=== PATIENT | female | born 1960 | race Hispanic/Latino ===

== ENCOUNTER 2019-05-13 01:53 | Emergency (ER) | payer BC ==
[~2019-05-13] VITALS: Ht 152.4 cm; Wt 78.5 kg
--- OUTSIDE RECORDS SUMMARY | 2019-05-13 01:55 | XMS REPORT | Clinical Summary ---
Author Author [facility] Organization [facility] Address Unknown Phone Unavailable Care Team Providers Care Casting Supervisor Name Role Phone Ariadna Bradshaw MD PCP Allergies No Known Allergies Medications End Date Status Medication Sig Dispensed Refills Start Date Active omeprazole (PRILOSEC) 20 Take 2 60 capsule 5 mg delayed release capsules by 9 capsuleIndications: mouth daily. Gastroesophageal reflux disease without esophagitis Active amLODIPine (NORVASC) 10 Take 1 tablet 30 tablet 5 mg tabletIndications: by mouth 9 Essential hypertension, daily. benign Active albuterol 90 Inhale 2 6.7 g 0 mcg/actuation Puffs by 9 inhalerIndications: mouth 4 times Moderate persistent daily as extrinsic asthma with needed for acute exacerbation Wheezing. Active albuterol (PROVENTIL) 2.5 Inhale 3 mL 75 mL 5 mg /3 mL (0.083 %) by mouth 9 nebulizer every 6 hours solutionIndications: as needed for Moderate persistent Wheezing. extrinsic asthma with acute exacerbation Active fluticasone Inhale 1 Puff 60 Each 11 propion-salmeterol by mouth 2 9 (ADVAIR DISKUS) 250-50 times daily. mcg/dose diskus inhalerIndications: Moderate persistent extrinsic asthma with acute exacerbation Active predniSONE (DELTASONE) 20 Take 2 tabs 11 tablet 0 mg tabletIndications: for 3 days 9 Moderate persistent then take 1 extrinsic asthma with tab for 3 acute exacerbation days then 1/2 for 3 days. Active Nebulizer & Compressor by 1 Device 0 For Neb DeviIndications: Misc.(Non-Leonides 9 Moderate persistent g; Combo extrinsic asthma with Route) route. acute exacerbation Active Nebulizer Accessories by 1 Kit 0 KitIndications: Moderate Misc.(Non-Leonides 9 persistent extrinsic g; Combo asthma with acute Route) route. exacerbation Active oxybutynin (DITROPAN) 5 Take 1 tablet 60 tablet 11 mg tabletIndications: by mouth 2 9 Urge incontinence times daily. Active triamcinolone (TRIDERM) Apply to 80 g 5 0.1 % topical affected area 9 creamIndications: Eczema, 2 times daily unspecified type as needed (eczema). Active mometasone (NASONEX) 50 Inhale 2 17 g 5 mcg/actuation nasal spray Sprays in 9 each nostril daily. Auto substitution for Flonase per p&t 03/15/2019 Discontinued CITALOPRAM 20 MG take 1 tablet 30 6 TABIndications: (20 mg) by 8 Depression oral route once daily 04/01/2019 Discontinued fluticasone propionate Use 2 Sprays 16 g 5 (FLONASE) 50 in each 9 mcg/actuation nasal nostril sprayIndications: daily. Seasonal allergic rhinitis, unspecified trigger 04/01/2019 Discontinued mometasone (NASONEX) 50 Use2 Sprays 17 g 5 mcg/actuation nasal spray by each 9 nostril route daily. (Autosubstitu tion per P&T) 04/11/2019 terconazole (TERAZOL 3) Insert 1 20 g 0 0.8 % vaginal Applicator 9 creamIndications: Yeast vaginally at infection bedtime nightly for 3 days For yeast infection. Status Hospital, Clinic, or Ordered Dose Route Frequency Start End Date Other Facility Date Administered Medication Ended methylPREDNISolone sodium 40 mg IM ONCE 03/15/20 succinate (SOLU-MEDROL) 19 9 injection 40 mgIndications: Moderate persistent extrinsic asthma with acute exacerbation Active Problems Problem Noted Date Insomnia 11/01/2007 Depression 09/21/2007 Pruritus 09/21/2007 Prurigo nodularis 06/07/2007 Arthralgias 06/07/2007 Dermatitis 06/07/2007 Headache(784.0) 06/07/2007 Encounters Care Team Description Date Type Specialty Hilliard, Es A, DDS Chronic periodontitis (Primary Dx); Dental caries 05/09/2019 Office Visit Dentistry 05/09/2019 Travel Jennifer Gonzalez OT Symptomatic varicose veins, bilateral (Primary Dx) 04/29/2019 Therapy Occupational Therapy 04/29/2019 Travel Ariadna Bradshaw MD Well woman exam (Primary Dx) 04/09/2019 Orders Only Family Practice Ariadna Bradshaw MD 04/01/2019 Hospital Lab Encounter Ariadna Bradshaw MD Well woman exam 03/29/2019 Ancillary Radiology Procedure Ariadna Bradshaw MD Well woman exam (Primary Dx); Eczema, unspecified type; Seasonal allergic rhinitis, unspecified trigger; Yeast infection 03/29/2019 Office Visit Family Practice 03/29/2019 Travel Ariadna Bradshaw MD Breast cancer screening 03/27/2019 Ancillary Radiology Procedure Ariadna Bradshaw MD Symptomatic varicose veins, bilateral (Primary Dx); Preventive measure; Urge incontinence; Breast cancer screening 03/22/2019 Office Visit [facility] Silvia Lo RN 03/20/2019 Clinical Case Social Work Mgt Jonathan Mendoza MD Bailey, Franchelle Y, MD Moderate persistent extrinsic asthma with acute exacerbation (Primary Dx); Gastroesophageal reflux disease without esophagitis; Essential hypertension, benign 03/15/2019 Office Visit Family Practice 03/15/2019 Travel after 05/12/2018 Immunizations Name Administration Dates Next Due Albuterol 0.083% (3ml) 03/15/2019 Family History Medical History Relation Name Comments Hypertension Brother Arthritis Father Diabetes Father Hypertension Father Cancer Maternal Aunt Diabetes Maternal Aunt Hypertension Maternal Aunt Arthritis Maternal Grandmother Diabetes Maternal Grandmother Stroke Maternal Grandmother Diabetes Maternal Uncle Hypertension Maternal Uncle Arthritis Mother Diabetes Mother Hypertension Mother Asthma Sister Psychiatry Sister Seizures Sister Psychiatry Sister Relation Name Status Comments Brother Father Maternal Aunt Maternal Grandmother Maternal Uncle Mother Sister Sister Social History Date Tobacco Use Types Packs/Day Years Used Former Smoker 15 Smokeless Tobacco: Never Used Comments: 1-2 cig Drinks/Week oz/Week Comments Alcohol Use one 6 pack in one week Not Currently Food Insecurity Answer Date Recorded Within the past 12 months, you worried that your Never true 03/22/2019 food would run out before you got money to buy more. Within the past 12 months, the food you bought Never true 03/22/2019 just didn't last and you didn't have money to get more. Sex Assigned at Date Recorded Not on file Industry Job Start Date Occupation Not on file Not on file Not on file Travel End Travel History Travel Start No recent travel history available. Last Filed Vital Signs Reading Time Taken Comments Vital Sign 142/86 03/29/2019 9:08 AM CDT Blood Pressure 68 03/29/2019 9:08 AM CDT Pulse 36.8 C (98.2 F) 03/29/2019 9:08 AM CDT Temperature 17 03/29/2019 9:08 AM CDT Respiratory Rate - - Oxygen Saturation - - Inhaled Oxygen Concentration 83 kg (183 lb) 03/29/2019 9:08 AM CDT Weight 154.9 cm (5' 1") 03/29/2019 9:08 AM CDT Height 34.58 03/29/2019 9:08 AM CDT Body Mass Index Plan of Treatment Care Team Description Date Type Specialty Nando Qiu, OD [address] [place], [place] [id number] eye exam 05/17/2019 Office Visit [place] [address] [place] [address]. [place] [address] F/U RESULTS 05/21/2019 Office Visit Family Practice Health Maintenance Due Date Last Done Comments Cervical Cancer Scrn (3 1979 Yrs) IMM Influenza Seasonal 07/09/2019 Oct to December (>/=19 yrs) Breast Cancer Scrn 03/29/2020 03/29/2019 (Yearly) Colorectal Cancer Scrn 03/29/2020 03/29/2019 Annual (FIT/FOBT) Age 50 to 75 Goals Goal Patient Associated Recent Progress Patient-Stat Author Goal Type Problems ed? Weight (lb) < 200 lb (90.7 kg) Weight 83 kg (183 lb) No Kiara, (03/29/2019 9:08 AM Svitlana Quintero CDT) Procedures Comments Procedure Name Priority Date/Time Associated Diagnosis HPV HIGH-RISK Routine 04/01/2019 8:35 AM CDT FECAL OCCULT BLOOD Routine 03/29/2019 Preventive measure 12:26 PM CDT MAMMOGRAM BILAT SCREEN Routine 03/29/2019 Well woman exam DIGITAL 10:08 AM CDT CHLAM/GC DNA AMPLI Routine 03/29/2019 Well woman exam 9:33 AM CDT PAP TEST CYTOLOGY Routine 03/29/2019 Well woman exam 9:31 AM CDT DIFFERENTIAL, MANUAL-WAM Routine 03/27/2019 Preventive measure 8:46 AM CDT CBC Routine 03/27/2019 Preventive measure 8:46 AM CDT THYROID STIMULATING Routine 03/27/2019 Preventive measure HORMONE (TSH) 8:46 AM CDT SYPHILIS SCREEN FOR Routine 03/27/2019 Preventive measure INFECTION 8:46 AM CDT HIV-1/HIV-2 ROUTINE Routine 03/27/2019 Preventive measure SCREENING 8:46 AM CDT HEPATITIS PANEL Routine 03/27/2019 Preventive measure 8:46 AM CDT HEMOGLOBIN A1C Routine 03/27/2019 Preventive measure 8:46 AM CDT LIPID PROFILE Routine 03/27/2019 Preventive measure 8:46 AM CDT CBC/DIFF Routine 03/27/2019 Preventive measure 8:46 AM CDT COMPREHENSIVE METABOLIC Routine 03/27/2019 Preventive measure PANEL 8:46 AM CDT after 05/12/2018 Results * HPV HIGH-RISK (04/01/2019 8:35 AM CDT) HPV High Risk Negative Negative [facility] Specimen Liquid Based Pap - Cervix, NOS Narrative Performed At The [facility] HPV Assay is an in vitro nucleic acid amplification test for the [facility] qualitative detection of E6/E7 viral messenger RNA (mRNA) from 14 high-risk types of human papillomavirus (HPV) in cervical specimens. The high-risk HPV types detected by the assay include: 16,18,31,33,35,39,45,51,52,56,58,59,66, and 68. Performing Organization Address City/[facility]/Zipcode Phone Number [facility] [address] [place] [address] * FECAL OCCULT BLOOD (03/29/2019 12:26 PM CDT) Occult Blood Negative Negative [facility] Specimen Stool - Feces Performing Organization Address [facility] Phone Number [facility] * MAMMOGRAM BILAT SCREEN DIGITAL (03/29/2019 10:08 AM CDT) Specimen Impressions Performed At IMPRESSION: BENIGN SMS There is no mammographic evidence of malignancy. A 1 year screening mammogram is recommended. This document has been electronically signed. Stephanie Alves M.D. to/penrad:03/29/2019 11:29:24 Caisson Worker: Priscilla Villalobos, [facility] letter sent: Benign Exam Mammogram BI-RADS: 2 Benign G0202 z12.31 Narrative Performed At #[id number] - MAMMOGRAM BILAT SCREEN DIGITAL SMS BILATERAL DIGITAL SCREENING MAMMOGRAM WITH CAD: 03/27/2019 CLINICAL: Screening for malignancy. No prior exams were available for comparison. There are scattered fibroglandular elements in both breasts that could obscure a lesion on mammography. Current study was also evaluated with a Computer Aided Detection (CAD) system. There are benign calcifications in both breasts.There also is a benign intramammary node in the left breast. No significant masses, calcifications, or other findings are seen in either breast. Procedure Note Interface, Rad/Mammog In - 03/29/2019 1:34 PM CDT #[id number] - MAMMOGRAM BILAT SCREEN DIGITAL BILATERAL DIGITAL SCREENING MAMMOGRAM WITH CAD: 03/27/2019 CLINICAL: Screening for malignancy. No prior exams were available for comparison. There are scattered fibroglandular elements in both breasts that could obscure a lesion on mammography. Current study was also evaluated with a Computer Aided Detection (CAD) system. There are benign calcifications in both breasts. There also is a benign intramammary node in the left breast. No significant masses, calcifications, or other findings are seen in either breast. IMPRESSION IMPRESSION: BENIGN There is no mammographic evidence of malignancy. A 1 year screening mammogram is recommended. This document has been electronically signed. Stephanie Alves M.D. to/penrad:03/29/2019 11:29:24 Caisson Worker: Priscilla Villalobos [facility] letter sent: Benign Exam Mammogram BI-RADS: 2 Benign G0202 z12.31 Performing Organization Address [facility] Phone Number SMS * CHLAM/GC DNA AMPLI (03/29/2019 9:33 AM CDT) Chlamydia Negative Negative [facility] trachomatis [facility] N. gonorrhoeae Negative Negative [facility] Specimen Genital - Cervix, endocervix Narrative Performed At This test utilizes Infinio Combo 2 Assay for target amplification of rRNA [facility] for the qualitative detection of Chlamydia trachomatis and Neisseria gonorrhoeae. Performing Organization Address [facility] Phone Number [facility] [address] [place] [address] * PAP TEST CYTOLOGY (03/29/2019 9:31 AM CDT) Case Report Gynecologic Cytology [facility] Report [facility] Case: [id number] Authorizing Provider:Ariadna Bradshaw MD Collected: 03/29/2019 09:31 AM Ordering Location: [facility] MLKReceived: 03/29/20 19 02:03 PM First Screen:Chadwick villegas, Nazia Rescreen: Caitlin Calle Specimen:ThinPrep Bonderite Operator Manual, Cervicovaginal Specimen Satisfactory for evaluation, [facility] Adequacy No endocervical/transformation LABORATORY zone present Interpretation Negative for intraepithelial [facility] Electronically lesion or malignancy LAB[facility] signed by Caitlin Calle CT (ASCP) on 04/04/2019 at 2:58 PM Non Neoplastic Infection [facility] Findings Fungal organisms LABORATORY morphologically consistent with Jamilah species Pertinent postmenopausal [facility] Clinical [facility] Information Educational The pap smear/test is a [facility] Note screening test for cervical LABORATORY cancer. As with screening procedures, both false negative and false positive results may occur. Hence, the results should be interpreted in the context of patient's history and current clinical information. Specimen Liquid Based Pap - Cervicovaginal Performing Organization Address City/[facility] Cent[facility]ode Phone Number [facility] [address] [place] [address] * CBC (03/27/2019 8:46 AM CDT) [facility] WBC 7.2 4.5 - 11.0 K/uL [facility] RBC 4.32 4.20 - 5.40 M/uL [facility] Hemoglobin 12.5 12.0 - 16.0 g/dL [facility] Hematocrit 40.8 37.0 - 47.0 % [facility] MCV 94.4 (H) 82.0 - 92.0 fL [facility] MCH 28.9 27.0 - 32.0 pg [facility] MCHC 30.6 (L) 32.0 - 36.0 g/dL [facility] RDW 45.8 36.4 - 46.3 fL [facility] Platelet 789 (H) 150 - 400 K/uL [facility] Mean Platelet 10.1 9.4 - 12.4 fL [facility] Volume [facility] Percent NRBC 0.0 % [facility] Absolute 0.00 K/uL [facility] NRBC-CV [facility] Specimen Blood Performing Organization Address [facility]ercook Phone Number [facility] [address] [place] [address] * SYPHILIS SCREEN FOR INFECTION (03/27/2019 8:46 AM CDT) [facility] TPA NEGATIVE Negative, Equivocal [facility] Final Report NEGATIVE Negative [facility] Specimen Blood Performing Organization Address [facility] Phone Number [facility] [address] [place] [address] * DIFFERENTIAL, MANUAL-WAM (03/27/2019 8:46 AM CDT) [facility] WBC 4.5 - 11.0 K/uL [facility] Neutrophil 69.0 34.0 - 70.0 % [facility] Lymphocyte 17.0 (L) 20.0 - 50.0 % [facility] Monocyte 5.0 5.0 - 12.0 % [facility] Eosinophil 9.0 (H) 0.7 - 5.0 % [facility] Basophil 0.0 (L) 0.1 - 1.2 % [facility] Neutrophil, Abs 4.94 1.56 - 6.13 K/uL [facility] Lymphocyte, Abs 1.22 1.18 - 3.74 K/uL [facility] Monocyte, Abs 0.36 0.24 - 0.36 K/uL [facility] Eosinophil, Abs 0.64 (H) 0.04 - 0.36 K/uL [facility] Basophil, Abs 0.00 (L) 0.01 - 0.08 K/uL [facility] Large Platelets 2+ (A) None seen [facility] Platelet Clumps Present (A) None seen [facility] Total Cells [facility] Counted [facility] Specimen Blood Performing Organization Address [facility] Phone Number [facility] [address] [place] [address] * HIV-1/HIV-2 ROUTINE SCREENING (03/27/2019 8:46 AM CDT) [facility] HIV-1/HIV-2 NEGATIVE Negative [facility] Specimen Blood Performing Organization Address [facility] Phone Number [facility] [address] [place] [phone] * HEMOGLOBIN A1C (03/27/2019 8:46 AM CDT) [facility] Hemoglobin A1c 6.1 4.3 - 6.1 % [facility] Estimated 128 (H) 70 - 110 mg/dL [facility] Average Glucose LABOR[facility] Specimen Blood Performing Organization Address [facility] Phone Number [facility] [address] [place] [phone] * COMPREHENSIVE METABOLIC PANEL (03/27/2019 8:46 AM CDT) [facility] Sodium 139 136 - 145 mmol/L [facility] Potassium 4.9 3.5 - 5.1 mmol/L [facility] Chloride 103 98 - 107 mmol/L [facility] CO2 27 21 - 31 mmol/L [facility] Glucose 117 (H) 70 - 110 mg/dL [facility] Calcium, Total 9.5 8.6 - 10.3 mg/dL [facility] Urea Nitrogen 12.0 7.0 - 25.0 mg/dL [facility] Creatinine 0.5 (L) 0.6 - 1.2 mg/dL [facility] Alkaline 77 34 - 104 U/L [facility] Phosphatase [facility] ALT 20 7 - 52 U/L [facility] AST 16 13 - 39 U/L [facility] Total Bilirubin 0.5 0.2 - 1.2 mg/dL [facility] Total Protein 5.9 (L) 6.0 - 8.3 g/dL [facility] GFR, Estimated >90 >=90 mL/min/1.73 m2 [facility] Albumin 3.7 3.7 - 5.3 g/dL [facility] Anion Gap 9 5 - 16 mmol/L [facility] Specimen Blood Performing Organization Address [facility] Phone Number [facility] [address] [place] [address] * THYROID STIMULATING HORMONE (TSH) (03/27/2019 8:46 AM CDT) TSH 3.43 0.57 - 3.74 uIU/mL [facility] Comment: LAB[facility]ORY If , please see the following reference ranges (not verified by lab): 1st Trimester: 0.05 -3.70 uIU/mL 2nd Trimester: 0.31 -4.35 uIU/mL 3rd Trimester: 0.41 - 5.18 uIU/mL Specimen Blood Performing Organization Address [facility] Phone Number [facility] [address] [place] [address] * LIPID PROFILE (03/27/2019 8:46 AM CDT) Triglyceride 105 <150 mg/dL [facility] Comment: LAB[facility] Normal: < 150.0 mg/dL Borderline: 150-199 mg/dL High: 200-499 mg/dL Very High: >=500 mg/dL Cholesterol 234.0 (H) <=200.0 mg/dL [facility] Comment: LAB[facility] Desirable: < 200.0 mg/dL Borderline: 200 - 240 mg/dL High Risk: > 240 mg/dL HDL 100.0 See Reference Range [facility] Comment: Narrative. mg/dL LABORATORY Increased CHD Risk: < 40.0 mg/dL Decreased CHD Risk: > 60 mg/dL LDL 113 (H) <100 mg/dL [facility] Comment: LAB[facility] Optimal: < 100.0 mg/dL Near Optimal: 120-129 mg/dL Borderline: 130-159 mg/dL High: 160-189 mg/dL Very High: >=190 mg/dL Specimen Blood Performing Organization Address [facility]/State/Zipcode Phone Number [facility] [address] [place] [address] * HEPATITIS PANEL (03/27/2019 8:46 AM CDT) Hep C Vir Ab Negative Negative [facility] IgG [facility] Hep B Surface Negative Negative [facility] Ag [facility] Hep A Vir Ab Negative Negative [facility] IgM [facility] Hep B Core Ab Negative Negative [facility] IgM [facility] Specimen Blood Performing Organization Address City/State/Zipcode Phone Number [facility] [address] [place] [address] after 05/12/2018 Insurance Type Payer Benefit Subscriber ID Effective Phone Address Plan / Dates Group [employer] xxxxxxx 2019-5 [id number] / [place] [address] [facility] xxxxxxx 2019-5 [address] / [id number] [place] [facility] [phone]
--- OUTSIDE RECORDS SUMMARY | 2019-05-13 01:56 | XMS REPORT ---
Author Author Ana Roa Organization [employer] Address Unknown Phone Unavailable Care Team Providers Care Acidity Tester Name Role Phone Ana Roa CP Unavailable Allergies, Adverse Reactions, Alerts Substance Reaction Event Type N.K.D.A. Info Not Available Non Drug Allergy Problems Problem Type Condition Code Onset Dates Condition Status Problem Hypertensive heart disease without heart failure I11.9 Active Assessment Angina pectoris, unspecified I20.9 Active Problem Angina pectoris, unspecified I20.9 Active Assessment Hypertensive heart disease without heart failure I11.9 Active Assessment Chest pain, unspecified R07.9 Active Assessment Dyspnea, unspecified R06.00 Active Medications Medication Code System Code Instructions Start Date End Date Status Dosage Aspirin [facility][NOTE 3] 66536830753 81 MG Orally Once a day December 15, 2017 Active 1 tablet ProAir HFA ND 98333535068 108 (90 Base) MCG/ACT Inhalation every 4 hrs Active 2 puffs as needed Pantoprazole Sodium ND 68992716837 40 MG Orally Once a day Active 1 tablet Breo Ellipta ND 86558864502 200-25 MCG/INH Inhalation Once a day Active 1 puff Nitroglycerin [facility][NOTE 3] 93026318739 0.4 MG Sublingual as needed (prn) December 15, 2017 Active as directed Amlodipine Besylate ND 83432041439 10 MG Orally Once a day Active 1 tablet Vital Signs Date/Time: December 15, 2017 BMI 32.81 Index Weight 168 lbs Height 5ft 0in in Cardiac Monitoring Heart Rate 79 /min Blood Pressure Diastolic 75 mm Hg Blood Pressure Systolic 129 mm Hg Results No Known Results Summary Purpose [employer] Submission
--- OUTSIDE RECORDS SUMMARY | 2019-05-13 01:56 | XMS REPORT | Continuity of Care Document ---
Author Author [employer] Address Unknown Phone Unavailable Care Team Providers [employer] Jointer Name Role Phone Experiment Information [employer] Unavailable Unavailable Problems Problem Status Onset Date Classification Date Reported Comments Source Shortness of breath 11/23/2017 02/23/2018 [facility] SHORTNESS OF BREATH Active 11/17/2017 [facility] Insomnia Active 11/01/2007 05/09/[address] [facility] Depression Active 09/21/2007 05/09/[address] [facility] Pruritus Active 09/21/2007 05/09/[address] [facility] Prurigo nodularis Active 06/07/2007 05/09/[address] [facility] Arthralgias Active 06/07/2007 05/09/[address] [facility] Dermatitis Active 06/07/2007 05/09/[address] [facility] Headache Active 06/07/2007 05/09/[address] [facility] Hypertensive heart disease without heart failure Active Problem 02/06/2018 Regan Clemens MD, PA Angina pectoris, unspecified Active Problem 02/06/2018 Regan Clemens MD, [place] Abnormal result of cardiovascular function study, unspecified Active Diagnosis 01/17/2018 Regan Clemens MD, PA Dyspnea, unspecified Active Diagnosis 01/17/2018 Regan Clemens MD, PA Chest pain, unspecified Active Diagnosis 01/17/2018 Regan Clemens MD, [place] Eczema, unspecified type Active 05/09/[address] [facility] Seasonal allergic rhinitis, unspecified trigger Active 05/09/[address] [facility] Yeast infection Active 05/09/[address] [facility] Breast cancer screening Active 05/09/[address] [facility] Symptomatic varicose veins, bilateral Active 05/09/[address] [facility] Preventive measure Active 05/09/[address] [facility] Urge incontinence Active 05/09/[address] [facility] Moderate persistent extrinsic asthma with acute exacerbation Active 05/09/[address] [facility] Gastroesophageal reflux disease without esophagitis Active 05/09/[address] [facility] Essential hypertension, benign Active 05/09/[address] [facility] COUGH Active [facility] Medications Medication Details Route Status Patient Instructions Ordering Provider Order Date Source terconazole (TERAZOL 3) 0.8 % vaginal cream Insert 1 Applicator vaginally at bedtime nightly for 3 days For yeast infection. Vaginal No Longer Active 04/08/[address] [facility] fluticasone propionate (FLONASE) 50 mcg/actuation nasal spray Use 2 Sprays in each nostril daily. No Longer Active 03/29/[address] [facility] triamcinolone (TRIDERM) 0.1 % topical cream Apply to affected area 2 times daily as needed (eczema). Topical Active 03/29/[address] [facility] mometasone (NASONEX) 50 mcg/actuation nasal spray Inhale 2 Sprays in each nostril daily.Auto substitution for Flonase per p&t Active 03/29/[address] [facility] oxybutynin (DITROPAN) 5 mg tablet Take 1 tablet by mouth 2 times daily. Oral Active 03/22/[address] [facility] methylPREDNISolone sodium succinate (SOLU-MEDROL) injection 40 mg Intramuscular Inactive 03/15/[address] [facility] omeprazole (PRILOSEC) 20 mg delayed release capsule Take 2 capsules by mouth daily. Oral Active 03/15/[address] [facility] amLODIPine (NORVASC) 10 mg tablet Take 1 tablet by mouth daily. Oral Active 03/15/[address] [facility] albuterol 90 mcg/actuation inhaler Inhale 2 Puffs by mouth 4 times daily as needed for Wheezing. Inhalation Active 03/15/[address] [facility] albuterol (PROVENTIL) 2.5 mg /3 mL (0.083 %) nebulizer solution Inhale 3 mL by mouth every 6 hours as needed for Wheezing. Inhalation Active 03/15/[address] [facility] fluticasone propion-salmeterol (ADVAIR DISKUS) 250-50 mcg/dose diskus inhaler Inhale 1 Puff by mouth 2 times daily. Inhalation Active 03/15/[address] [facility] predniSONE (DELTASONE) 20 mg tablet Take 2 tabs for 3 days then take 1 tab for 3 days then 1/2 for 3 days. Active 03/15/[address] [facility] Nebulizer & Compressor For Neb Raegan by [facility].(Non-Drug; Combo Route) route. Active 03/15/[address] [facility] Nebulizer Accessories Kit by [facility].(Non-Drug; Combo Route) route. Active 03/15/[address] [facility] Nitroglycerin as directed Sublingual Active 0.4 MG Sublingual as needed (prn) Ma-Nyze 12/15/2017 Regan Clemens MD, PA Aspirin 1 tablet Orally Active 81 MG Orally Once a day Nyaleta 12/15/2017 Regan Clemens MD, PA CITALOPRAM 20 MG TAB take 1 tablet (20 mg) by oral route once daily Oral No Longer Active 11/01/[address] [facility] Breo Ellipta 1 puff Inhalation Active 200-25 MCG/INH Inhalation Once a day Janina Clemens MD, PA ProAir HFA 2 puffs as needed Inhalation Active 108 (90 Base) MCG/ACT Inhalation every 4 hrs Janina Clemens MD, PA Pantoprazole Sodium 1 tablet Orally Active 40 MG Orally Once a day Janina Clemens MD, PA Amlodipine Besylate 1 tablet Orally Active 10 MG Orally Once a day Janina Clemens MD, RODGER Allergies, Adverse Reactions, Alerts Substance Category Reaction Severity Reaction type Status Date Reported Comments Source N.K.D.A. Adverse Reaction Info Not Available Adverse Reaction Active 01/16/2018 Regan Clemens MD, [place] Immunizations Immunization Date Given Site Status Last Updated Comments Source Albuterol 0.083% (3ml) 03/15/[address] [place] [address] [facility] Results Order Name Results Value Reference Range Date Interpretation Comments Source PAP TEST CYTOLOGY Case Report Gynecologic Cytology Report Case: [id number] Authorizing Provider:Ariadna Bradshaw MD Collected: 03/29/2019 09:31 AM [facility]03 PM First Screen:Nazia Pratt Rescreen:Caitlin Calle Specimen:ThinPrep Economic Research Assistant Manual, Cervicovaginal 04/04/[address] [facility] PAP TEST CYTOLOGY Specimen Adequacy Satisfactory for evaluation, No endocervical/transformation zone present 04/04/[address] [facility] PAP TEST CYTOLOGY Interpretation Negative for intraepithelial lesion or malignancy 04/04/[address] [facility] PAP TEST CYTOLOGY Non Neoplastic Findings Infection Fungal organisms morphologically consistent with Jamilah species 04/04/[address] [facility] PAP TEST CYTOLOGY Pertinent Clinical Information postmenopausal 04/04/[address] [facility] PAP TEST CYTOLOGY Educational Note The pap smear/test is a screening test for cervical cancer. As with screening procedures, both false negative and false positive results may occur. Hence, the results should be interpreted in the context of patient's history and current clinical information. 04/04/2019 [facility] HPV HIGH-RISK HPV High Risk Negative Negative 04/01/[address] [facility] HPV HIGH-RISK <p>The APTIMA HPV Assay is an in vitro nucleic acid amplification test for the qualitative detection of E6/E7 viral messenger RNA (mRNA) from 14 high-risk types of human papillomavirus (HPV) in cervical specimens. The high-risk HPV types detected by the assay include: 16,18,31,33,35,39,45,51,52,56,58,59,66, and 68.</p> The APTIMA HPV Assay is an in vitro nucleic acid amplification test for the qualitative detection of E6/E7 viral messenger RNA (mRNA) from 14 high-risk types of human papillomavirus (HPV) in cervical specimens. The high-risk HPV types detected by the assay include: 16,18,31,33,35,39,45,51,52,56,58,59,66, and 68. 04/01/[address] [facility] HPV HIGH-RISK Lab Interpretation Normal 04/01/2019 [facility] CHLAM/GC DNA AMPLI <td ID="[id number]">Chlamydia trachomatis</td><td>Negative</td><td>Negative</td><td>[facility]</td><td ID="[id number]"/> Negative Negative 03/30/2019 [facility] CHLAM/GC DNA AMPLI <td ID="[id number]">N. gonorrhoeae</td><td>Negative</td><td>Negative</td><td>[facility]</td><td ID="[id number]"/> Negative Negative 03/30/2019 [facility] CHLAM/GC DNA AMPLI <p>This test utilizes [employer] Aptima Combo 2 Assay for target amplification of rRNA for the qualitative detection of Chlamydia trachomatis and Neisseria gonorrhoeae.</p> This test utilizes [employer] Aptima Combo 2 Assay for target amplification of rRNA for the qualitative detection of Chlamydia trachomatis and Neisseria gonorrhoeae. 03/30/[address] [facility] CHLAM/GC DNA AMPLI Lab Interpretation Normal 03/30/[address] [facility] FECAL OCCULT BLOOD <td ID="[id number]">Occult Blood</td><td>Negative</td><td>Negative</td><td>[facility]</td><td ID="[id number]"/> Negative Negative 03/29/[address] [facility] FECAL OCCULT BLOOD Lab Interpretation Normal 03/29/[address] [facility] MAMMOGRAM BILAT SCREEN DIGITAL <p>IMPRESSION: BENIGN</p><p>There is no mammographic evidence of malignancy. A 1 year </p><p>screening mammogram is recommended.</p><p>This document has been electronically signed.</p><p> </p><p>Stephanie Alves M.D.</p><p>to/penrad:03/29/2019 11:29:24</p><p> </p><p>Abstract Clerk: [facility] </p><p>[facility] </p><p>letter sent: Benign Exam</p><p>Mammogram BI- RADS: 2 Benign G0202 z12.31</p> IMPRESSION: BENIGNThere is no mammographic evidence of malignancy. A 1 year screening mammogram is recommended.This document has been electronically signed. Stephanie Alves M.D.to/penrad:03/29/2019 11:29:24 Abstract Clerk: [facility] letter sent: Benign ExamMammogram BI-RADS: 2 Benign G0202 z12.31 03/29/[address] [facility] MAMMOGRAM BILAT SCREEN DIGITAL <p> </p><p>#[id number] - MAMMOGRAM BILAT SCREEN DIGITAL</p><p>BILATERAL DIGITAL SCREENING MAMMOGRAM WITH CAD: 03/27/2019</p><p>CLINICAL: Screening for malignancy.</p><p> </p><p>No prior exams were available for comparison.</p><p>There are scattered fibroglandular elements in both breasts that </p><p>could obscure a lesion on mammography.</p><p>Current study was also evaluated with a Computer Aided Detection </p><p>(CAD) system.</p><p>There are benign calcifications in both breasts.There also is a </p><p>benign intramammary node in the left breast.</p><p>No significant masses, calcifications, or other findings are seen </p><p>in either breast.</p><p> </p> #[id number] - MAMMOGRAM BILAT SCREEN DIGITALBILATERAL DIGITAL SCREENING MAMMOGRAM WITH CAD: 03/27/2019CLINICAL: Screening for malignancy. No prior exams were available for comparison.There are scattered f ibroglandular elements in both breasts that could obscure a lesion on mammography.Current study was also evaluated with a Computer Aided Detection (CAD) system.There are benign calcifications in both breasts.There also is a benign intramammary node in the left breast.No significant masses, calcifications, or other findings are seen in either breast. 03/29/[address] [facility] MAMMOGRAM BILAT SCREEN DIGITAL <p styleCode="header">Interface, Rad/Mammog In - 03/29/2019 1:34 PM CDT</p><p>
<span>#[id number] - MAMMOGRAM BILAT SCREEN DIGITAL</span>
<span>BILATERAL DIGITAL SCREENING MAMMOGRAM WITH CAD: 03/27/2019</span>
<span>CLINICAL: Screening for malignancy. </span>

<span>No prior exams were available for comparison. </span>
<span>There are scattered fibroglandular elements in both breasts that </span>
<span>could obscure a lesion on mammography. </span>&a mp;lt;br/><span>Current study was also evaluated with a Computer Aided Detection </span>
<span>(CAD) system. </span>
<span>There are benign calcifications in both breasts. There also is a </span>
<span>benign intramammary node in the left breast. </span>
<span>No significant masses, calcifications, or other findings are seen </span>
<span>in either breast. </span>

<span>IMPRESSION</span>
<span>IMPRESSION: BENIGN</span>&l t;br/><span>There is no mammographic evidence of malignancy. A 1 year </span>
<span>screening mammogram is recommended. </span& amp;gt;
<span>This document has been electronically signed.</span>

<span>Stephanie Alves M.D. & lt;/span>
<span>to/penrad:03/29/2019 11:29:24 </span>

<span>Abstract Clerk: [facility] </span>
<span>Clinic </span>
<span>letter sent: Benign Exam </span>
<span>Mammogram BI-RADS: 2 Benign G0202 z12.31</span></p> Interface, Rad/Mammog In - 03/29/2019 1:34 PM CDT #[id number] - MAMMOGRAM BILAT SCREEN DIGITAL BILATERAL DIGITAL [...] electronically signed. Stephanie Alves M.D. to/penrad:03/29/2019 11:29:24 Abstract Clerk: [facility] letter sent: Benign Exam Mammogram BI-RADS: 2 Benign G0202 z12.31 03/29/[address] [facility] SYPHILIS SCREEN FOR INFECTION Lab Interpretation Normal 03/28/[address] [facility] CBC <td ID="[id number]">WBC</td><td>7.2</td><td>4.5 - 11.0 K/uL</td><td>[facility]</td><td ID="[id number]"/> 7.2 4.5 - 11 03/28/[address] [facility] CBC <td ID="[id number]">RBC</td><td>4.32</td><td>4.20 - 5.40 M/uL</td><td>[facility]</td><td ID="[id number]"/> 4.32 4.20 - 5.40 03/28/[address] [facility] CBC <td ID="[id number]">Hemoglobin</td><td>12.5</td><td>12.0 - 16.0 g/dL</td><td>[facility]</td><td ID="[id number]"/> 12.5 12 - 16 03/28/[address] [facility] CBC <td ID="[id number]">Hematocrit</td><td>40.8</td><td>37.0 - 47.0 %</td><td>[facility]</td><td ID="[id number]"/> 40.8 37 - 47 03/28/[address] [facility] CBC <td ID="[id number]">MCV</td><td><span style="flagData">94.4</span><span style="flagData"> (H)</span></td><td>82.0 - 92.0 fL</td><td>[facility]</td><td ID="[id number]"/> 94.4 82 - 92 03/28/[address] [facility] CBC <td ID="[id number]">MCH</td><td>28.9</td><td>27.0 - 32.0 pg</td><td>[facility]</td><td ID="[id number]"/> 28.9 27 - 32 03/28/[address] [facility] CBC <td ID="[id number]">MCHC</td><td><span style="flagData">30.6</span><span style="flagData"> (L)</span></td><td>32.0 - 36.0 g/dL</td><td>[facility]</td><td ID="[id number]"/> 30.6 32 - 36 03/28/[address] [facility] CBC <td ID="[id number]">RDW</td><td>45.8</td><td>36.4 - 46.3 fL</td><td>[facility]</td><td ID="[id number]"/> 45.8 36.4 - 46.3 03/28/[address] [facility] CBC <td ID="[id number]">Platelet</td><td><span style="flagData">789</span><span style="flagData"> (H)</span></td><td>150 - 400 K/uL</td><td>[facility]</td><td ID="[id number]"/> 789 150 - 400 03/28/[address] [facility] CBC <td ID="[id number]">Mean Platelet Volume</td><td>10.1</td><td>9.4 - 12.4 fL</td><td>[facility]</td><td ID="[id number]"/> 10.1 9.4 - 12.4 03/28/[address] [facility] CBC Percent NRBC 0.0 03/28/2019 [facility] CBC Absolute NRBC-CV 0.00 03/28/[address] [facility] CBC Lab Interpretation Abnormal 03/28/2019 [facility] DIFFERENTIAL, MANUAL-WAM WBC WBC 4.5 - 11.0 K/uL [facility] 4.5 - 11 03/28/2019 [facility] DIFFERENTIAL, MANUAL-WAM Neutrophil 69.0 34 - 70 03/28/2019 [facility] DIFFERENTIAL, MANUAL-WAM Lymphocyte 17.0 20 - 50 03/28/2019 [facility] DIFFERENTIAL, MANUAL-WAM Monocyte 5.0 5 - 12 03/28/2019 [facility] DIFFERENTIAL, MANUAL-WAM Eosinophil 9.0 0.7 - 5 03/28/2019 [facility] DIFFERENTIAL, MANUAL-WAM Basophil 0.0 0.1 - 1.2 03/28/2019 [facility] DIFFERENTIAL, MANUAL-WAM Neutrophil, Abs 4.94 1.56 - 6.13 03/28/2019 [facility] DIFFERENTIAL, MANUAL-WAM Lymphocyte, Abs 1.22 1.18 - 3.74 03/28/2019 [facility] DIFFERENTIAL, MANUAL-WAM Monocyte, Abs 0.36 0.24 - 0.36 03/28/2019 [facility] DIFFERENTIAL, MANUAL-WAM Eosinophil, Abs 0.64 0.04 - 0.36 03/28/2019 [facility] DIFFERENTIAL, MANUAL-WAM Basophil, Abs 0.00 0.01 - 0.08 03/28/2019 [facility] DIFFERENTIAL, MANUAL-WAM Large Platelets 2+ None seen 03/28/2019 [facility] DIFFERENTIAL, MANUAL-WAM Platelet Clumps Present None seen 03/28/2019 [facility] DIFFERENTIAL, MANUAL-WAM Total Cells Counted Total Cells Counted [facility] 03/28/2019 [facility] DIFFERENTIAL, MANUAL-WAM Lab Interpretation Abnormal 03/28/[address] [facility] HEMOGLOBIN A1C <td ID="[id number]">Hemoglobin A1c</td><td>6.1</td><td>4.3 - 6.1 %</td><td>[facility]</td><td ID="[id number]"/> 6.1 4.3 - 6.1 03/28/[address] [facility] HEMOGLOBIN A1C Estimated Average Glucose 128 70 - 110 03/28/[address] [facility] HEMOGLOBIN A1C Lab Interpretation Abnormal 03/28/[address] [facility] HEPATITIS PANEL <td ID="[id number]">Hep C Vir Ab IgG</td><td>Negative</td><td>Negative</td><td>[facility]</td><td ID="[id number]"/> Negative Negative 03/27/[address] [facility] HEPATITIS PANEL <td ID="[id number]">Hep B Surface Ag</td><td>Negative</td><td>Negative</td><td>[facility]</td><td ID="[id number]"/> Negative Negative 03/27/[address] [facility] HEPATITIS PANEL <td ID="[id number]">Hep A Vir Ab IgM</td><td>Negative</td><td>Negative</td><td>[facility]</td><td ID="[id number]"/> Negative Negative 03/27/[address] [facility] HEPATITIS PANEL <td ID="[id number]">Hep B Core Ab IgM</td><td>Negative</td><td>Negative</td><td>[facility]</td><td ID="[id number]"/> Negative Negative 03/27/[address] [facility] HEPATITIS PANEL Lab Interpretation Normal 03/27/[address] [facility] HIV-1/HIV-2 ROUTINE SCREENING Lab Interpretation Normal 03/27/[address] [facility] COMPREHENSIVE METABOLIC PANEL <td ID="[id number]">Sodium</td><td>139</td><td>136 - 145 mmol/L</td><td>[facility]</td><td ID="[id number]"/> 139 136 - 145 03/27/[address] [facility] COMPREHENSIVE METABOLIC PANEL <td ID="[id number]">Potassium</td><td>4.9</td><td>3.5 - 5.1 mmol/L</td><td>[facility]</td><td ID="[id number]"/> 4.9 3.5 - 5.1 03/27/[address] [facility] COMPREHENSIVE METABOLIC PANEL <td ID="[id number]">Chloride</td><td>103</td><td>98 - 107 mmol/L</td><td>[facility]</td><td ID="[id number]"/> 103 98 - 107 03/27/[address] [facility] COMPREHENSIVE METABOLIC PANEL CO2 27 21 - 31 03/27/[address] [facility] COMPREHENSIVE METABOLIC PANEL Glucose 117 70 - 110 03/27/[address] [facility] COMPREHENSIVE METABOLIC PANEL Calcium, Total 9.5 8.6 - 10.3 03/27/[address] [facility] COMPREHENSIVE METABOLIC PANEL Urea Nitrogen 12.0 7 - 25 03/27/[address] [facility] COMPREHENSIVE METABOLIC PANEL Creatinine 0.5 0.6 - 1.2 03/27/[address] [facility] COMPREHENSIVE METABOLIC PANEL Alkaline Phosphatase 77 34 - 104 03/27/[address] [facility] COMPREHENSIVE METABOLIC PANEL ALT 20 7 - 52 03/27/[address] [facility] COMPREHENSIVE METABOLIC PANEL AST 16 13 - 39 03/27/[address] [facility] COMPREHENSIVE METABOLIC PANEL <td ID="[id number]">Total Bilirubin</td><td>0.5</td><td>0.2 - 1.2 mg/dL</td><td>[facility]</td><td ID="[id number]"/> 0.5 0.2 - 1.2 03/27/[address] [facility] COMPREHENSIVE METABOLIC PANEL <td ID="[id number]">Total Protein</td><td><span style="flagData">5.9</span><span style="flagData"> (L)</span></td><td>6.0 - 8.3 g/dL</td><td>[facility]</td><td ID="[id number]"/> 5.9 6 - 8.3 03/27/2019 [facility] METABOLIC PANEL GFR, Estimated >90 >=90 mL/min/1.73 m2 03/27/[address] [facility] COMPREHENSIVE METABOLIC PANEL <td ID="[id number]">Albumin</td><td>3.7</td><td>3.7 - 5.3 g/dL</td><td>[facility]</td><td ID="[id number]"/> 3.7 3.7 - 5.3 03/27/[address] [facility] COMPREHENSIVE METABOLIC PANEL Anion Gap 9 5 - 16 03/27/[address] [facility] COMPREHENSIVE METABOLIC PANEL Lab Interpretation Abnormal 03/27/[address] [facility] THYROID STIMULATING HORMONE (TSH) TSH 3.43 0.57 - 3.74 03/27/2019 If , please see the following reference ranges (not verified by lab):

1st Trimester: 0.05 -3.70 uIU/mL
2nd Trimester: 0.31 -4.35 uIU/mL
3rd Trimester: 0.41 - 5.18 uIU/mL
[facility] THYROID STIMULATING HORMONE (TSH) Lab Interpretation Normal 03/27/[address] [facility] LIPID PROFILE Triglyceride 105 <150 03/27/2019 Normal: < 150.0 mg/dL
Borderline: 150-199 mg/dL
High: 200- 499 mg/dL
Very High: >=500 mg/dL
[facility] LIPID PROFILE <td ID="[id number]">Cholesterol</td><td><span style="flagData">234.0</span><span style="flagData"> (H)</span>
<span style="allIndent"><span style="cellHeader">Comment: </span>
<span ID="[id number]" style="pre">Desirable: < 200.0 mg/dL<br/&gt ;Borderline: 200 - 240 mg/dL
High Risk: > 240 mg/dL
</span></span></td><td><=200.0 mg/dL</td><td>[facility]</td><td ID="[id number]"/> 234.0 <=200.0 03/27/2019 Desirable: < 200.0 mg/dL
Borderline: 200 - 240 mg/dL
High Risk: > 240 mg/dL
[facility] LIPID PROFILE <td ID="[id number]">HDL</td><td><span>100.0</span>
<span style="allIndent"><span style="cellHeader">Comment: </span>
<span ID="[id number]" style="pre">Increased CHD Risk: < 40.0 mg/dL
Decreased CHD Risk: > 60 mg/dL
</span></span></td><td>See Reference Range Narrative. mg/dL</td><td>[facility]</td><td ID="[id number]"/> 100.0 See Reference Range Narrative. 03/27/2019 Increased CHD Risk: < 40.0 mg/dL
Decreased CHD Risk: > 60 mg/dL
[facility] LIPID PROFILE <td ID="[id number]">LDL</td><td><span style="flagData">113</span><span style="flagData"> (H)</span>
<span style="allIndent"><span style="cellHeader">Comment: </span>
<span ID="[id number]" style="pre">Optimal: < 100.0 mg/dL
Near Optimal: 120-129 mg/dL
Borderline: 130-159 mg/dL
High: 160-189 mg/dL
Very High: >=190 mg/dL
</span></span></td><td><100 mg/dL</td><td>[facility]</td><td ID="[id number]"/> 113 <100 03/27/2019 Optimal: < 100.0 mg/dL
Near Optimal: 120- 129 mg/dL
Borderline: 130-159 mg/dL
High: 160-189 mg/dL
Very High: >=190 mg/dL
[facility] LIPID PROFILE Lab Interpretation Abnormal 03/27/[address] [facility] CARDIAC ENZYMES BNP 34 <=100 pg/mL 08/11/2016 [facility] CHEM PANEL eGFR 102 08/11/2016 Result Comment: The eGFR is calculated using the CKD-EPI formula. In most young, healthy individuals the eGFR will be >90 mL/min/1.73m2. The eGFR declines with age. An eGFR of 60-89 may be normal in some populations, particularly the elderly, for whom the CKD-EPI formula has not been extensively validated. Use of the eGFR is not recommended in the following populations:

Individuals with unstable creatinine concentrations, including patients and those with serious co-morbid conditions.

Patients with extremes in muscle mass or diet.

The data above are obtained from the National Kidney Disease Education Program (NKDEP) which additionally recommends that when the eGFR is used in patients with extremes of body mass index for purposes of drug dosing, the eGFR should be multiplied by the estimated BMI. [facility] CHEM PANEL Bili Total 0.6 0.2 - 1.3 08/11/2016 [facility] CHEM PANEL AST 17 0 - 37 08/11/2016 [facility] CHEM PANEL ALT 21 0 - 65 08/11/2016 [facility] CHEM PANEL Alk Phos 109 39 - 136 08/11/2016 [facility] CHEM PANEL Glucose Lvl 83 70 - 99 08/11/2016 [facility] CHEM PANEL Sodium Lvl 139 135 - 145 08/11/2016 [facility] CHEM PANEL Potassium Lvl 3.4 3.5 - 5.1 08/11/2016 [facility] CHEM PANEL Creatinine Lvl 0.59 0.50 - 1.40 08/11/2016 [facility] CHEM PANEL BUN 12 7 - 22 08/11/2016 [facility] CHEM PANEL Total Protein 7.5 6.4 - 8.4 08/11/2016 [facility] CHEM PANEL Albumin Lvl 3.7 3.5 - 5.0 08/11/2016 [facility] CHEM PANEL CO2 24 24 - 32 08/11/2016 [facility] CHEM PANEL Chloride Lvl 104 95 - 109 08/11/2016 [facility] CHEM PANEL Calcium Lvl 8.8 8.5 - 10.5 08/11/2016 [facility] CHEM PANEL AGAP 14.4 10.0 - 20.0 08/11/2016 [facility] CHEM PANEL B/C Ratio 20 6 - 25 08/11/2016 [facility] CHEM PANEL A/G Ratio 1.0 0.7 - 1.6 08/11/2016 [facility] CHEM PANEL Globulin 3.8 2.7 - 4.2 08/11/2016 [facility] HEMATOLOGY Sed Rate 20 0 - 20 08/11/2016 [facility] HEMATOLOGY RDW 13.2 11.5 - 14.5 08/11/2016 [facility] HEMATOLOGY MPV 9.3 7.4 - 10.4 08/11/2016 [facility] HEMATOLOGY Platelet 319 133 - 450 08/11/2016 [facility] HEMATOLOGY Hgb 13.2 12.0 - 16.0 08/11/2016 [facility] HEMATOLOGY RBC 4.37 4.20 - 5.40 08/11/2016 [facility] HEMATOLOGY WBC 8.9 3.7 - 10.4 08/11/2016 [facility] HEMATOLOGY MCH 30.2 27.0 - 31.0 08/11/2016 [facility] HEMATOLOGY MCV 86.6 80.0 - 98.0 08/11/2016 [facility] HEMATOLOGY MCHC 34.9 32.0 - 36.0 08/11/2016 [facility] HEMATOLOGY Hct 37.8 36.0 - 48.0 08/11/2016 [facility] HEMATOLOGY Eosinophils # 0.9 0.0 - 0.5 08/11/2016 [facility] HEMATOLOGY Monocytes # 0.4 0.0 - 0.8 08/11/2016 [facility] HEMATOLOGY Lymphocytes # 1.7 1.0 - 5.5 08/11/2016 [facility] HEMATOLOGY Segs-Bands # 5.9 1.5 - 8.1 08/11/2016 [facility] HEMATOLOGY Basophils 1.0 0.0 - 1.0 08/11/2016 [facility] HEMATOLOGY Eosinophils 9.7 0.0 - 4.0 08/11/2016 [facility] HEMATOLOGY Monocytes 4.7 2.0 - 12.0 08/11/2016 [facility] Lymphocytes 18.9 20.0 - 40.0 08/11/2016 [facility] HEMATOLOGY Segs 65.7 45.0 - 75.0 08/11/2016 [facility] HEMATOLOGY Basophils # 0.1 0.0 - 0.2 08/11/2016 [facility] IMMUNOLOGY IgE Lvl 93.5 10.0 - 100.0 08/11/2016 [facility] Pathology Reports No Data Provided for This Section Diagnostic Reports Report Value Date Source Chest 2 views DX Clinical Indication: - r06.02 shortness of breath Comparison: 08/11/2016 FINDINGS: PA and lateral chest radiographs were obtained. MEDIASTINUM: The cardiac silhouette is normal in size. The aorta is unremarkable. LUNGS: Lung volumes are maintained. There are no focal infiltrates or effusions. There are no pneumothoraces noted. BONES: The visualized osseous structures are unremarkable. IMPRESSION: No acute infiltrates or effusions. SL: [id number] 11/17/2017 [facility] Chest 2 views DX Patient Name: CHILO CHUNG : 1960; Age: 55 years y/o Female MR: [id number] * CHEST, 2 views HISTORY: r05 cough COMPARISON: None TECHNIQUE: Frontal and lateral radiographs of the chest were obtained. FINDINGS: The lungs are clear. There are no pleural effusions. The heart and pulmonary vasculature are within normal limits. The regional skeleton is unremarkable. IMPRESSION: 1. No active disease. SL: [id number] 08/11/2016 [facility] Sinus paranasal series DX Paranasal sinuses 4 views: The frontal sinuses are underdeveloped. There is mild mucosal thickening in the left maxillary sinus without fluid. The other sinuses are clear without mucosal thickening or fluid levels. There are no significant osseous or soft tissue abnormalities. IMPRESSION: Mild mucosal thickening in the left maxillary sinus. There are no other significant radiographic abnormalities. TIMMY DLAWRENCE-PC 08/11/2016 [facility] Consultation Notes No Data Provided for This Section Discharge Summaries No Data Provided for This Section History and Physicals No Data Provided for This Section Vital Signs Vital Sign Value Date Comments Source Systolic (mm Hg) 142 03/29/[address] [facility] Diastolic (mm Hg) 86 03/29/[address] [facility] Heart Rate 68 03/29/[address] [facility] Temperature Oral (F) 36.78 Mare 03/29/[address] [facility] Respitory Rate 17 03/29/[address] [facility] Height 154.9 cm 03/29/[address] [facility] Weight 83.008 03/29/[address] [facility] Weight 168 01/16/2018 Regan Clemens MD, [place] Heart Rate 79 01/16/2018 Regan Clemens MD, [place] Diastolic (mm Hg) 75 01/16/2018 Regan Clemens MD, [place] Systolic (mm Hg) 129 01/16/2018 Regan Clemens MD, [place] Weight 168 12/15/2017 Regan Clemens MD, [place] Heart Rate 79 12/15/2017 Regan Clemens MD, [place] Diastolic (mm Hg) 75 12/15/2017 Regan Clemens MD, PA Systolic (mm Hg) 129 12/15/2017 Regan Clemens MD, PA Encounters Location Location Details Encounter Type Encounter Number Reason For Visit Attending Provider ADM Date DC Date Status Source [facility] Outpatient [id number] Ray Varela 08/11/2016 08/12/2016 [facility] Outpatient [id number] Ray Varela 11/17/2017 11/18/2017 [facility] Travel [id number] 03/15/2019 [facility] Office Visit [id number] Jonathan Mendoza MD 03/15/2019 03/15/2019 [facility] Clinical Case Mgt [id number] Silvia Lo RN 03/20/2019 [facility] Office Visit [id number] Ariadna Bradshaw MD 03/22/2019 03/22/[address] [facility] Obstetrics [facility] Ancillary Procedure [id number] Ariadna Bradshaw MD 03/27/2019 03/27/[address] [facility] Travel [id number] 03/29/2019 [facility] Office Visit [id number] Ariadna Bradshaw MD 03/29/2019 04/08/[address] [facility] Obstetrics [facility] Ancillary Procedure [id number] Ariadna Bradshaw MD 03/29/2019 03/29/[address] [facility] LAB[facility]ATORY [facility] Hospital Encounter [id number] Ariadna Bradshaw MD 04/01/2019 04/02/[address] [facility] Family Practice [facility] Orders Only [id number] Ariadna Bradshaw MD 04/09/[address] [facility] Travel [id number] 04/29/[address] [facility] Occupational Therapy QM Therapy [id number] Jennifer Carlos OT 04/29/2019 04/29/[address] [facility] Travel [id number] 05/09/[address] [facility] Procedures Procedure Code Date Perfomer Comments Source HPV HIGH-RISK [id number] 04/01/2019 [facility] FECAL OCCULT BLOOD [id number] 03/29/2019 [facility] MAMMOGRAM BILAT SCREEN DIGITAL [id number] 03/29/2019 [facility] CHLAM/GC DNA AMPLI 70369 03/29/2019 [facility] PAP TEST CYTOLOGY 52143 03/29/2019 [facility] COMPREHENSIVE METABOLIC PANEL 60219 03/27/2019 [facility] CBC/DIFF 69379 03/27/2019 [facility] LIPID PROFILE [id number] 03/27/2019 [facility] HEMOGLOBIN A1C 54021 03/27/2019 [facility] HEPATITIS PANEL [id number] 03/27/2019 [facility] HIV-1/HIV-2 ROUTINE SCREENING 22941 03/27/2019 [facility] SYPHILIS SCREEN FOR INFECTION [id number] 03/27/2019 [facility] THYROID STIMULATING HORMONE (TSH) 52006 03/27/2019 [facility] CBC [id number] 03/27/2019 [facility] DIFFERENTIAL, MANUAL-WAM 65584 03/27/2019 [facility] Assessment and Plan No Data Provided for This Section Plan of Care Plan of Care Date Source Breast Cancer Scrn (Yearly) 03/29/[address] [facility] IMM Influenza Seasonal Jul to December (>/=19 yrs) 07/09/[address] [facility] Upcoming EncountersDateTypeSpecialtyCare TeamDescription 05/17/2019 Office Visit Ophthalmology Nando Qiu [address] [place], [place] [phone] (Fax) eye exam 05/21/2019 Office Visit Family Practice Ariadna Bradhsaw MD[address] [place], [place] [phone] F/U RESULTS Health MaintenanceDu DateLast DoneComments Cervical Cancer Scrn (3 Yrs) 1979 IMM Influenza Seasonal Jul to December (>/=19 yrs) 07/09/2019 Breast Cancer Scrn (Yearly) 03/29/2020 03/29/2019 Colorectal Cancer Scrn Annual (FIT/FOBT) Age 50 to 75 03/29/2020 03/29/2019 05/09/[address] [facility] Upcoming EncountersDateTypeSpecialtyCare TeamDescription 04/29/2019 Therapy Occupational Therapy Jennifer Gonzalez, [facility] 05/09/2019 Office Visit Dentistry [facility], [address] [place], [place] [phone] (Fax) 05/21/2019 Office Visit Family Practice Ariadna Bradshaw MD[address] [place], [place] [phone] F/U RESULTS [facility] MaintenanceDu DateLast DoneComments Cervical Cancer Scrn (3 Yrs) 1979 Colorectal Cancer Scrn Annual (FIT/FOBT) Age 50 to 75 2008 IMM Influenza Seasonal Jul to December (>/=19 yrs) 07/09/2019 Breast Cancer Scrn (Yearly) 03/29/2020 03/29/2019 04/24/[address] [facility] Colorectal Cancer Scrn Annual (FIT/FOBT) Age 50 to [address] [facility] Cervical Cancer Scrn (3 Yrs) [address] [facility] Social History Social History Date Source Tobacco UseTypesPacks/DayYears UsedDate Former Smoker 15 Smokeless Tobacco: Never Used Comments: 1-2 cig Alcohol UseDrinks/Weekoz/WeekComments Not Currently one 6 pack in one week Food InsecurityAnswerDate Recorded Within the past 12 months, you worried that your food would run out before you got money to buy more. Never true 03/22/2019 Within the past 12 months, the food you bought just didn't last and you didn't have money to get more. Never true 03/22/2019 Sex Assigned at BirthDate Recorded Not on file Job Start DateOccupationIndustry Not on file Not on file Not on file Travel HistoryTravel StartTravel End No recent travel history available. 03/29/[address] [facility] No data available for this section 11/18/2017 [facility] Family History Value Date Source Medical HistoryRelationNameComments Hypertension Brother Arthritis Father Diabetes Father Hypertension Father Cancer Maternal Aunt Diabetes Maternal Aunt Hypertension Maternal Aunt Arthritis Maternal Grandmother Diabetes Maternal Grandmother Stroke Maternal Grandmother Diabetes Maternal Uncle Hypertension Maternal Uncle Arthritis Mother Diabetes Mother Hypertension Mother Asthma Sister Psychiatry Sister Seizures Sister Psychiatry Sister RelationNameStatusComments Brother Father Maternal Aunt Maternal Grandmother Maternal Uncle Mother Sister Sister 05/09/[address] [facility] Medical HistoryRelationNameComments Hypertension Brother Arthritis Father Diabetes Father Hypertension Father Cancer Maternal Aunt Diabetes Maternal Aunt Hypertension Maternal Aunt Arthritis Maternal Grandmother Diabetes Maternal Grandmother Stroke Maternal Grandmother Diabetes Maternal Uncle Hypertension Maternal Uncle Arthritis Mother Diabetes Mother Hypertension Mother Asthma Sister Psychiatry Sister Seizures Sister Psychiatry Sister RelationNameStatusComments Brother Father Maternal Aunt Maternal Grandmother Maternal Uncle Mother Sister Sister 04/24/[address] [facility] Advance Directives No Data Provided for This Section Functional Status No Data Provided for This Section
--- OUTSIDE RECORDS SUMMARY | 2019-05-13 01:56 | XMS REPORT | Summary of Care ---
Author Author [facility] Organization [facility] Address Unknown Phone Unavailable Encounter HQ Encntr_alias(FIN) [id number] Date(s): 11/17/17 - 11/17/17 [facility] [address] [place] [address]- Encounter Diagnosis Shortness of breath (Final) - 11/22/17 Discharge Disposition: Home or Self Care Attending Physician: Ray Varela MD Vital Signs No data available for this section Problem List No data available for this section Allergies, Adverse Reactions, Alerts Substance Reaction Severity Status NKDA Active Medications No data available for this section Results No data available for this section Immunizations No data available for this section Procedures No data available for this section Social History No data available for this section Assessment and Plan No data available for this section
--- OUTSIDE RECORDS SUMMARY | 2019-05-13 01:56 | XMS REPORT ---
Author Author Ana Roa Organization [employer] Address Unknown Phone Unavailable Care Team Providers Care Senior It Architect Name Role Phone Ana Roa CP Unavailable Allergies, Adverse Reactions, Alerts Substance Reaction Event Type N.K.D.A. Info Not Available Non Drug Allergy Problems Problem Type Condition Code Onset Dates Condition Status Problem Hypertensive heart disease without heart failure I11.9 Active Assessment Angina pectoris, unspecified I20.9 Active Problem Angina pectoris, unspecified I20.9 Active Assessment Abnormal result of cardiovascular function study, unspecified R94.30 Active Assessment Dyspnea, unspecified R06.00 Active Assessment Hypertensive heart disease without heart failure I11.9 Active Medications Medication Code System Code Instructions Start Date End Date Status Dosage Breo Ellipta [facility] [id number] 200-25 MCG/INH Inhalation Once a day Active 1 puff ProAir HFA [facility] [id number] 108 (90 Base) MCG/ACT Inhalation every 4 hrs Active 2 puffs as needed Nitroglycerin [facility] [id number] 0.4 MG Sublingual as needed (prn) December 15, 2017 Active as directed Aspirin ND 05053719548 81 MG Orally Once a day December 15, 2017 Active 1 tablet Pantoprazole Sodium ND 18137549822 40 MG Orally Once a day Active 1 tablet Amlodipine Besylate ND 14675698458 10 MG Orally Once a day Active 1 tablet Vital Signs Date/Time: January 16, 2018 BMI 32.81 Index Weight 168 lbs Height 5ft 0in in Cardiac Monitoring Heart Rate 79 /min Blood Pressure Diastolic 75 mm Hg Blood Pressure Systolic 129 mm Hg Results No Known Results Summary Purpose [employer] Submission
--- OUTSIDE RECORDS SUMMARY | 2019-05-13 01:56 | XMS REPORT ---
Author Author Ana Roa Organization [employer] Address Unknown Phone Unavailable Care Team Providers Care Senior Planning Manager Name Role Phone Ana Roa CP Unavailable Allergies No Known Allergies Problems Problem Type Condition Code Onset Dates Condition Status Problem Hypertensive heart disease without heart failure I11.9 Active Problem Angina pectoris, unspecified I20.9 Active Medications No Known Medications Results No Known Results Summary Purpose [employer] Submission
--- OUTSIDE RECORDS SUMMARY | 2019-05-13 01:56 | XMS REPORT | Clinical Summary ---
Author Author [facility] Organization [facility] Address Unknown Phone Unavailable Care Team Providers Care Manager College Name Role Phone Ariadna Bradshaw MD PCP [...] Encounters Care Team Description Date Type Specialty 05/09/2019 Travel Jennifer Gonzalez, OT Symptomatic varicose veins, bilateral (Primary Dx) [...] incontinence; Breast cancer screening 03/22/2019 Office Visit [facility] Silvia Lo RN 03/20/2019 Clinical Case Social Work Mgt Jonathan Mendoza MD Bailey, Franchelle Y, MD Moderate persistent extrinsic asthma with acute exacerbation (Primary Dx); Gastroesophageal reflux disease without esophagitis; Essential hypertension, benign 03/15/2019 Office Visit [facility] 03/15/2019 Travel after 05/08/2018 Immunizations Name Administration Dates Next Due Albuterol [...] Date Type Specialty Nando Qiu, OD [address] [place] [address] [phone] eye exam 05/17/2019 Office Visit Ophthalmology Ariadna Bradshaw MD [address] [place] [address]. [place] [address] F/U RESULTS 05/21/2019 Office Visit Family Practice Health Maintenance Due Date Last Done Comments Cervical Cancer Scrn (3 1979 Yrs) IMM Influenza Seasonal 07/09/2019Jul to December (>/=19 yrs) Breast Cancer Scrn 03/29/2020 03/29/2019 (Yearly) Colorectal Cancer Scrn 03/29/2020 03/29/2019 Annual (FIT/FOBT) Age 50 to 75 Goals Goal Patient Associated Recent Progress Patient-Stat Author Goal Type Problems ed? Weight (lb) < 200 lb (90.7 kg) Weight 83 kg (183 lb) No Beary, (03/29/2019 9:08 AM Svitlana Quintero CDT) Procedures [...] Preventive measure PANEL 8:46 AM CDT after 05/08/2018 Results * HPV HIGH-RISK (04/01/2019 8:35 AM CDT) HPV High Risk Negative Negative [facility] Specimen Liquid Based Pap - Cervix, NOS Narrative Performed At The [facility] HPV Assay is an in vitro nucleic acid amplification test for the [facility] qualitative detection of E6/E7 viral messenger RNA (mRNA) from 14 high-risk types of human papillomavirus (HPV) in cervical specimens. The high-risk HPV types detected by the assay include: 16,18,31,33,35,39,45,51,52,56,58,59,66, and 68. Performing Organization Address City/State/Zipcode Phone Number [facility] [address] [place] [address] * FECAL OCCULT BLOOD (03/29/2019 12:26 PM CDT) Occult Blood Negative Negative [facility] Specimen Stool - Feces Performing Organization Address City/State/Zipcode Phone Number [facility] * MAMMOGRAM BILAT SCREEN DIGITAL (03/29/2019 10:08 AM CDT) Specimen Impressions Performed At IMPRESSION: BENIGN SMS There is no mammographic evidence of malignancy. A 1 year screening mammogram is recommended. This document has been electronically signed. Stephanie Alves M.D. to/penrad:03/29/2019 11:29:24 Millinery Designer: Priscilla Villalobos [facility] letter sent: Benign Exam Mammogram BI-RADS: 2 Benign G0202 z12.31 Narrative Performed At #[id number] - MAMMOGRAM BILAT SCREEN DIGITAL SMS BILATERAL [...] Rad/Mammog In - 03/29/2019 1:34 PM CDT #[id number] - MAMMOGRAM BILAT SCREEN DIGITAL BILATERAL DIGITAL [...] electronically signed. Stephanie Alves M.D. to/penrad:03/29/2019 11:29:24 Millinery Designer: Priscilla Villalobos [facility] letter sent: Benign Exam Mammogram BI-RADS: 2 Benign G0202 z12.31 Performing Organization Address City/State/Zipcode Phone Number SMS * CHLAM/GC DNA AMPLI (03/29/2019 9:33 AM CDT) Chlamydia Negative Negative [facility] trachomatis [facility] N. gonorrhoeae Negative Negative [facility] Specimen Genital - Cervix, endocervix Narrative Performed At This test utilizes Rooster Teeth Combo 2 Assay for target amplification of rRNA [facility] for the qualitative detection of Chlamydia trachomatis and Neisseria gonorrhoeae. Performing Organization Address [facility] [[email or web address] Phone Number [facility] [address] [place] [address] * PAP TEST CYTOLOGY (03/29/2019 9:31 AM CDT) Case Report Gynecologic Cytology [facility] Report [facility] Case: [id number] Authorizing Provider:Ariadna Bradshaw MD Collected: 03/29/2019 09:31 AM Ordering Location: [facility] MLKReceived: 03/29/20 19 02:03 PM First Screen:Ahm ed, Nazia Rescreen: Caitlin Calle Specimen:ThinPrep Buzzle Buffer Manual, Cervicovaginal Specimen Satisfactory for evaluation, [facility] [...] Based Pap - Cervicovaginal Performing Organization Address City/[facility] [[email or web address] Phone Number [facility] [address] [place] [address] * CBC (03/27/2019 8:46 AM CDT) WBC 7.2 4.5 - 11.0 K/uL [facility] RBC 4.32 4.20 - 5.40 M/uL [facility] Hemoglobin 12.5 12.0 - 16.0 g/dL [facility] Hematocrit 40.8 37.0 - 47.0 % [facility] MCV 94.4 (H) 82.0 - 92.0 [...] NRBC-CV LABORATORY Specimen Blood Performing Organization Address City/[facility]/Zipcode Phone Number [facility] [address] [place] [address] * SYPHILIS SCREEN FOR INFECTION (03/27/2019 8:46 AM CDT) TPA NEGATIVE Negative, Equivocal [facility] Final Report NEGATIVE Negative [facility] Specimen Blood Performing Organization Address [facility] [[email or web address] Phone Number [facility] [address] [place], [place] [phone] * DIFFERENTIAL, MANUAL-WAM (03/27/2019 8:46 AM CDT) WBC 4.5 - 11.0 K/uL [facility] [...] Abs 0.00 (L) 0.01 - 0.08 K/uL [facility] Large Platelets 2+ (A) None seen [facility] Platelet Clumps Present (A) None seen [facility] Total Cells [facility] Counted [facility] Specimen Blood Performing Organization Address [facility] [[email or web address] Phone Number [facility] [address] [place], [place] [phone] * HIV-1/HIV-2 ROUTINE SCREENING (03/27/2019 8:46 AM CDT) Pathologist [facility] HIV-1/HIV-2 NEGATIVE Negative [facility] Specimen Blood Performing Organization Address [facility] [[email or web address] Phone Number [facility] [address] [place] [address] * HEMOGLOBIN A1C (03/27/2019 8:46 AM CDT) Pathologist [facility] Hemoglobin A1c 6.1 4.3 - 6.1 % [facility] Estimated 128 (H) 70 - 110 mg/dL [facility] Average Glucose [facility] Specimen Blood Performing Organization Address [facility] Phone Number [facility] [address] [place] [address] * COMPREHENSIVE METABOLIC PANEL (03/27/2019 8:46 AM CDT) Sodium 139 136 - 145 mmol/L [facility] [...] Total Bilirubin 0.5 0.2 - 1.2 mg/dL [facility] Total Protein 5.9 (L) 6.0 - 8.3 g/dL [facility] GFR, Estimated >90 >=90 mL/min/1.73 m2 [facility] Albumin 3.7 3.7 - 5.3 g/dL [facility] Anion Gap 9 5 - 16 mmol/L [facility] Specimen Blood Performing Organization Address [facility] Phone Number [facility] [address] [place] [address] * THYROID STIMULATING HORMONE (TSH) (03/27/2019 8:46 AM CDT) TSH 3.43 0.57 - 3.74 uIU/mL [facility] Comment: LAB[facility]ATORY If , please see the following reference ranges (not verified by lab): 1st Trimester: 0.05 -3.70 uIU/mL 2nd Trimester: 0.31 -4.35 uIU/mL 3rd Trimester: 0.41 - 5.18 uIU/mL Specimen Blood Performing Organization Address [facility] Phone Number [facility] [address] [place] [address] * LIPID PROFILE (03/27/2019 8:46 AM CDT) [...] >=190 mg/dL Specimen Blood Performing Organization Address [facility] Phone Number [facility] [address] [place] [address] * HEPATITIS PANEL (03/27/2019 8:46 AM CDT) Hep C Vir Ab Negative Negative [facility] IgG [facility] Hep B Surface Negative Negative [facility] Ag [facility] Hep A Vir Ab Negative Negative [facility] IgM [facility] Hep B Core Ab Negative Negative [facility] IgM [facility] Specimen Blood Performing Organization Address City/State/Zipcode Phone Number [facility] [address] [place], [place] [phone] after 05/08/2018 Insurance Type Payer Benefit Subscriber ID Effective Phone Address Plan / Dates Group [employer] PLAN FINANCIAL xxxxxxx 2019-5 [address] / [place] [address] [facility] xxxxxxx 2019-5 [address] [employer] / [id number] [place], [place] [facility] [address]
--- OUTSIDE RECORDS SUMMARY | 2019-05-13 01:56 | XMS REPORT | Summary of Care ---
Author Author [facility] Organization [facility] Address Unknown Phone Unavailable Encounter MARRY Chakraborty(JERARDO) [id number] Date(s): 08/11/16 - 08/11/16 [facility] [address] [place] [address]- [phone] Discharge Disposition: Home or Self Care Attending Physician: Ray Varela MD Vital Signs No data available for this section Problem List No data available for this section Allergies, Adverse Reactions, Alerts Substance Reaction Severity Status NKDA Active Medications No data available for this section Results ELECTROLYTES Most recent to 1 oldest [Reference Range]: Sodium Lvl [135-145 139 mEq/L mEq/L] (08/11/16 5:32 PM) Potassium Lvl 3.4 mEq/L [3.5-5.1 mEq/L] *LOW* (08/11/16 5:32 PM) Chloride Lvl [95-109 104 mEq/L mEq/L] (08/11/16 5:32 PM) CO2 [24-32 mEq/L] 24 mEq/L (08/11/16 5:32 PM) AGAP [10.0-20.0 14.4 mEq/L mEq/L] (08/11/16 5:32 PM) CHEM PANEL Most recent to 1 oldest [Reference Range]: Creatinine Lvl 0.59 mg/dL [0.50-1.40 mg/dL] (08/11/16 5:32 PM) eGFR 102 mL/min/1.73m2 1 *NA* (08/11/16 5:32 PM) BUN [7-22 mg/dL] 12 mg/dL (08/11/16 5:32 PM) B/C Ratio [6-25] 20 (08/11/16 5:32 PM) Glucose Lvl [70-99 83 mg/dL mg/dL] (08/11/16 5:32 PM) Total Protein 7.5 g/dL [6.4-8.4 g/dL] (08/11/16 5:32 PM) Albumin Lvl [3.5-5.0 3.7 g/dL g/dL] (08/11/16 5:32 PM) Globulin [2.7-4.2 3.8 g/dL g/dL] (08/11/16 5:32 PM) A/G Ratio [0.7-1.6] 1.0 (08/11/16 5:32 PM) Calcium Lvl 8.8 mg/dL [8.5-10.5 mg/dL] (08/11/16 5:32 PM) ALT [0-65 unit/L] 21 unit/L (08/11/16 5:32 PM) AST [0-37 unit/L] 17 unit/L (08/11/16 5:32 PM) Alk Phos [39-136 109 unit/L unit/L] (08/11/16 5:32 PM) Bili Total [0.2-1.3 0.6 mg/dL mg/dL] (08/11/16 5:32 PM) 1Result Comment: The eGFR is calculated using the [...] from the National Kidney Disease Education Program ( NKDEP) which additionally recommends that when the eGFR is used in patients with extremes of body mass index for purposes of drug dosing, the eGFR should be mul tiplied by the estimated BMI. CARDIAC ENZYMES Most recent to 1 oldest [Reference Range]: BNP [<=100 pg/mL] 34 pg/mL (08/11/16 5:32 PM) IMMUNOLOGY Most recent to 1 oldest [Reference Range]: IgE Lvl [10.0-100.0 93.5 IU/mL IU/mL] (08/11/16 5:32 PM) HEMATOLOGY Most recent to 1 oldest [Reference Range]: WBC [3.7-10.4 K/CMM] 8.9 K/CMM (08/11/16 5:32 PM) RBC [4.20-5.40 4.37 M/CMM M/CMM] (08/11/16 5:32 PM) Hgb [12.0-16.0 g/dL] 13.2 g/dL (08/11/16 5:32 PM) Hct [36.0-48.0 %] 37.8 % (08/11/16 5:32 PM) MCV [80.0-98.0 fL] 86.6 fL (08/11/16 5:32 PM) MCH [27.0-31.0 pg] 30.2 pg (08/11/16 5:32 PM) MCHC [32.0-36.0 34.9 g/dL g/dL] (08/11/16 5:32 PM) RDW [11.5-14.5 %] 13.2 % (08/11/16 5:32 PM) Platelet [133-450 319 K/CMM K/CMM] (08/11/16 5:32 PM) MPV [7.4-10.4 fL] 9.3 fL (08/11/16 5:32 PM) Segs [45.0-75.0 %] 65.7 % (08/11/16 5:32 PM) Lymphocytes 18.9 % [20.0-40.0 %] *LOW* (08/11/16 5:32 PM) Monocytes [2.0-12.0 4.7 % %] (08/11/16 5:32 PM) Eosinophils [0.0-4.0 9.7 % %] *HI* (08/11/16 5:32 PM) Basophils [0.0-1.0 1.0 % %] (08/11/16 5:32 PM) Segs-Bands # 5.9 K/CMM [1.5-8.1 K/CMM] (08/11/16 5:32 PM) Lymphocytes # 1.7 K/CMM [1.0-5.5 K/CMM] (08/11/16 5:32 PM) Monocytes # [0.0-0.8 0.4 K/CMM K/CMM] (08/11/16 5:32 PM) Eosinophils # 0.9 K/CMM [0.0-0.5 K/CMM] *HI* (08/11/16 5:32 PM) Basophils # [0.0-0.2 0.1 K/CMM K/CMM] (08/11/16 5:32 PM) Sed Rate [0-20 20 mm/hr mm/hr] (08/11/16 5:32 PM) Immunizations No data available for this section Procedures No data available for this section Social History No data available for this section Assessment and Plan No data available for this section
--- OUTSIDE RECORDS SUMMARY | 2019-05-13 01:57 | XMS REPORT | Clinical Summary ---
Author Author [facility] Organization [facility] Address Unknown Phone Unavailable Care Team Providers Care Physical Integration Practitioner Name Role Phone Ariadna Bradshaw MD PCP [...] Encounters Care Team Description Date Type Specialty Ariadna Bardshaw MD Well woman exam (Primary Dx) 04/09/2019 Orders Only Family Practice Ariadna Bradshaw MD 04/01/2019 Hospital Lab Encounter Ariadna Bradshaw MD Well woman exam 03/29/2019 Ancillary Radiology Procedure Ariadna Bradshaw MD Well woman exam (Primary Dx); Eczema, unspecified type; Seasonal allergic rhinitis, unspecified trigger; Yeast infection 03/29/2019 Office Visit [facility] 03/29/2019 Travel Ariadna Bradshaw MD Breast cancer screening 03/27/2019 Ancillary Radiology Procedure Ariadna Bradshaw MD Symptomatic varicose veins, bilateral (Primary Dx); Preventive measure; Urge incontinence; Breast cancer screening 03/22/2019 Office Visit [facility] Silvia Lo RN 03/20/2019 Clinical Case Social Work Mgt Jonathan Mendoza MD Bailey, Franchelle Y, MD Moderate persistent extrinsic asthma with acute exacerbation (Primary Dx); Gastroesophageal reflux disease without esophagitis; Essential hypertension, benign 03/15/2019 Office Visit [facility] 03/15/2019 Travel after 04/23/2018 Immunizations Name Administration Dates Next Due Albuterol [...] Treatment Care Team Description Date Type Specialty Jennifer Gonzalez, OT OCCUPATIONAL THERAPY [facility]/BT 04/29/2019 Therapy Occupational Therapy Es Hilliard, DDS [address] [place] [address] 05/09/2019 Office Visit Dentistry Ariadna Bradshaw MD [address] [place] [address] F/U RESULTS 05/21/2019 Office Visit Family Practice Health Maintenance Due Date Last Done Comments Cervical Cancer Scrn (3 1979 Yrs) Colorectal Cancer Scrn 2008 Annual (FIT/FOBT) Age 50 to 75 IMM Influenza Seasonal 07/09/2019Jul to December (>/=19 yrs) Breast Cancer Scrn 03/29/2020 03/29/2019 (Yearly) Goals Goal Patient Associated Recent Progress Patient-Stat [...] Preventive measure PANEL 8:46 AM CDT after 04/23/2018 Results * HPV HIGH-RISK (04/01/2019 8:35 AM CDT) HPV High Risk Negative Negative [facility] Specimen Liquid Based Pap - Cervix, NOS Narrative [facility]formed At [facility] Assay is an in vitro nucleic acid amplification test for the [facility] qualitative detection of E6/E7 viral messenger RNA (mRNA) from 14 high-risk types of human papillomavirus (HPV) in cervical specimens. The high-risk HPV types detected by the assay include: 16,18,31,33,35,39,45,51,52,56,58,59,66, and 68. Performing Organization Address City/State/Zipcode Phone Number [facility] [address] [place] [address] * FECAL OCCULT BLOOD (03/29/2019 12:26 PM [...] electronically signed. Stephanie Alves M.D. to/penrad:03/29/2019 11:29:24 Basket Mender: Priscilla Villalobos [facility] letter sent: Benign Exam Mammogram BI-RADS: 2 Benign G0202 z12.31 Narrative Performed At #[id number] - MAMMOGRAM BILAT SCREEN DIGITAL SMS BILATERAL [...] Rad/Mammog In - 03/29/2019 1:34 PM CDT #[id number] - MAMMOGRAM BILAT SCREEN DIGITAL BILATERAL DIGITAL [...] electronically signed. Stephanie Alves M.D. to/penrad:03/29/2019 11:29:24 Basket Mender: Priscilla Villalobos [facility] letter sent: Benign Exam Mammogram BI-RADS: 2 Benign G0202 z12.31 Performing Organization Address [facility] Phone Number SMS * CHLAM/GC DNA AMPLI (03/29/2019 9:33 AM CDT) Chlamydia Negative Negative [facility] tr[facility] N. gonorrhoeae Negative Negative [facility] Specimen Genital - Cervix, endocervix Narrative Performed At This test utilizes Interhyp Aptima Combo 2 Assay for target amplification of rRNA [facility] for the qualitative detection of Chlamydia trachomatis and Neisseria gonorrhoeae. Performing Organization Address [facility] Phone Number [facility] [address] [place] [address] * PAP TEST CYTOLOGY (03/29/2019 9:31 AM CDT) Case Report Gynecologic Cytology [facility] Case: [id number] Authorizing Provider:Ariadna Bradshaw MD Collected: 03/29/2019 09:31 AM Ordering Location: [facility] MLKReceived: 03/29/20 19 02:03 PM First Screen:[facility] bakari, Nazia Rescreen: Caitlin Calle Specimen:ThinPrep Environmental Planning Engineer Manual, Cervicovaginal Specimen Satisfactory for evaluation, [facility] Adequacy No endocervical/transformation LABORATORY zone present Interpretation Negative for intraepithelial [facility] Electronically lesion or malignancy LABORATORY signed by Caitlin Calle on 04/04/2019 at 2:58 PM Non Neoplastic [...] Based Pap - Cervicovaginal Performing Organization Address City/[facility] Phone Number [facility] [address] [place] [address] * CBC (03/27/2019 8:46 AM CDT) WBC 7.2 4.5 - 11.0 K/uL [facility] RBC 4.32 4.20 - 5.40 M/uL [facility] Hemoglobin 12.5 12.0 - 16.0 g/dL [facility] Hematocrit 40.8 37.0 - 47.0 % [...] NRBC-CV LABORATORY Specimen Blood Performing Organization Address City/[facility] Phone Number [facility] [address] [place] [address] * SYPHILIS SCREEN FOR INFECTION (03/27/2019 8:46 AM CDT) Pathologist [facility] TPA NEGATIVE Negative, Equivocal [facility] Final Report NEGATIVE Negative [facility] Specimen Blood Performing Organization Address City/[facility] Phone Number [facility] [address] [place], [place] [phone] * DIFFERENTIAL, MANUAL-WAM (03/27/2019 8:46 AM CDT) [facility] WBC 4.5 - 11.0 K/uL [facility] [...] Counted LABORATORY Specimen Blood Performing Organization Address [facility] Phone Number [facility] [address] [place] [address] * HIV-1/HIV-2 ROUTINE SCREENING (03/27/2019 8:46 AM CDT) Pathologist [facility] HIV-1/HIV-2 NEGATIVE Negative [facility] Specimen Blood Performing Organization Address [facility] Phone Number [facility] [address] [place] [address] * HEMOGLOBIN A1C (03/27/2019 8:46 AM CDT) [facility] Hemoglobin A1c 6.1 4.3 - 6.1 % [facility] Estimated 128 (H) 70 - 110 mg/dL [facility] Average Glucose LABORATORY Specimen Blood Performing Organization Address [facility] Phone Number [facility] [address] [place] [address] * COMPREHENSIVE METABOLIC PANEL (03/27/2019 8:46 AM CDT) [facility] Sodium 139 136 - 145 mmol/L [facility] [...] Protein 5.9 (L) 6.0 - 8.3 g/dL [facility] GFR, Estimated >90 >=90 mL/min/1.73 m2 [facility] Albumin 3.7 3.7 - 5.3 g/dL [facility] Anion Gap 9 5 - 16 mmol/L [facility] Specimen Blood Performing Organization Address [facility] Phone Number [facility] [address] [place], [place] [phone] * THYROID STIMULATING HORMONE (TSH) (03/27/2019 8:46 AM CDT) Pathologist [facility] TSH 3.43 0.57 - 3.74 uIU/mL [facility] Comment: LABORATORY If , please see the following reference ranges (not verified by lab): 1st Trimester: 0.05 -3.70 uIU/mL 2nd Trimester: 0.31 -4.35 uIU/mL 3rd Trimester: 0.41 - 5.18 uIU/mL Specimen Blood Performing Organization Address [facility] Phone Number [facility] [address] [place] [address] * LIPID PROFILE (03/27/2019 8:46 AM CDT) Pathologist [facility] Triglyceride 105 <150 mg/dL [facility] Comment: LABORATORY Normal: < 150.0 mg/dL Borderline: 150-199 mg/dL High: 200-499 mg/dL Very High: >=500 mg/dL Cholesterol 234.0 (H) <=200.0 mg/dL [facility] Comment: LABOR[facility]ORY Desirable: < 200.0 mg/dL Borderline: 200 - 240 mg/dL High Risk: > 240 mg/dL HDL 100.0 See Reference Range [facility] Comment: Narrative. mg/dL LABORATORY Increased CHD Risk: < 40.0 mg/dL Decreased CHD Risk: > 60 mg/dL LDL 113 (H) <100 mg/dL [facility] Comment: LABOR[facility]ORY Optimal: < 100.0 mg/dL Near Optimal: 120-129 mg/dL Borderline: 130-159 mg/dL High: 160-189 mg/dL Very High: >=190 mg/dL Specimen Blood Performing Organization Address [facility] Phone Number [facility] [address] [place] [address] * HEPATITIS PANEL (03/27/2019 8:46 AM CDT) Hep C Vir Ab Negative Negative [facility] IgG [facility] Hep B Surface Negative Negative [facility] Ag [facility] Hep A Vir Ab Negative Negative [facility] IgM [facility] Hep B Core Ab Negative Negative [facility] IgM [facility] Specimen Blood Performing Organization Address City/State/Zipcode Phone Number [facility] [address] [place] [address] after 04/23/2018 Insurance Type Payer Benefit Subscriber ID Effective Phone Address Plan / Dates Group [employer] PLAN HCHD PLAN xxxxxxx 2019-5 [address] [place] [address] [facility] xxxxxxx 2019- [phone] [address] [id number] [facility] [phone]
--- OUTSIDE RECORDS SUMMARY | 2019-05-13 01:57 | XMS REPORT ---
Author [facility] Address Unknown Phone Unavailable Care Team Providers Care Outfitter [place] Name Role Phone Unavailable Unavailable Problems This patient has no known problems. Allergies, Adverse Reactions, Alerts This patient has no known allergies or adverse reactions. Medications This patient has no known medications. Encounters Start Date/Time End Date/Time Encounter Type Admission Type Attending [facility] Care Department Encounter ID 2019-05-21 00:00:00 2019-05-21 00:00:00 Outpatient [facility] [id number] 2019-05-17 00:00:00 2019-05-17 00:00:00 Outpatient [facility] [id number] 2019-05-09 11:36:45 2019-05-09 11:36:45 Outpatient [facility] [id number] 2019-04-29 08:30:52 2019-04-29 08:30:52 Outpatient [facility] [id number] 2019-04-01 08:19:52 2019-04-01 08:19:52 Outpatient [facility] [id number] 2019-03-29 09:59:29 2019-03-29 09:59:29 Outpatient [facility] [id number] 2019-03-29 09:08:04 2019-03-29 09:08:04 Outpatient [facility] [id number] 2019-03-29 00:00:00 2019-03-29 00:00:00 Outpatient [facility] [id number] 2019-03-27 09:19:53 2019-03-27 09:19:53 Outpatient [facility] [id number] 2019-03-27 08:42:11 2019-03-27 08:42:11 Outpatient [facility] [id number] 2019-03-27 00:00:00 2019-03-27 00:00:00 Outpatient [facility] [id number] 2019-03-22 11:06:51 2019-03-22 11:06:51 Outpatient [facility] [id number] 2019-03-15 14:47:36 2019-03-15 14:47:36 Outpatient [facility] [id number]
== END 2019-05-13 02:10 | disposition left against medical advice (07) ==
LOC: ER 01:53
DX: R07.89 Other chest pain (principal)
CPT/HCPCS: 93005

== ENCOUNTER → 2020-07-08 | Outpatient (CLI) | payer BC ==
--- NOTE | 2020-07-08 16:09 | Diagnostic Imaging Report ---
EXAMINATION: FOOT COMPLETE BILATERAL INDICATION: Bilateral foot pain COMPARISON: None FINDINGS: AP, oblique, and lateral images of both feet were obtained. Left foot: No acute fracture or dislocation. No substantial degenerative change. Plantar calcaneal spur. Soft tissues appear unremarkable. Right foot: No acute fracture or dislocation. Alignment is anatomic. No substantial degenerative change. Postoperative findings of prior ORIF at the medial malleolus with partially threaded screws. Healed right distal fibular fracture deformity. Plantar calcaneal spur. Soft tissues appear unremarkable. IMPRESSION: No acute osseous injury of either foot. No substantial degenerative change. Old healed right distal tibia and fibula fractures and postoperative findings of distal tibial ORIF. Bilateral plantar calcaneal spurs. Signed by: Nevaeh Enamorado MD on 07/08/2020 4:06 PM
--- NOTE | 2020-07-08 16:11 | Diagnostic Imaging Report ---
EXAMINATION: SHOULDER RIGHT COMPLETE INDICATION: Right shoulder pain COMPARISON: None FINDINGS: Internal and external rotation views of the right shoulder demonstrate no acute fracture or dislocation. Alignment is anatomic. Mild degenerative changes of the acromioclavicular and glenohumeral joints. The soft tissues appear unremarkable. Partially visualized portions of the lung demonstrate no focal consolidation. IMPRESSION: No acute osseous injury of the right shoulder. Mild degenerative changes of the glenohumeral and acromioclavicular joints. Signed by: Nevaeh Enamorado MD on 07/08/2020 4:07 PM
--- NOTE | 2020-07-08 16:12 | Diagnostic Imaging Report ---
EXAMINATION: KNEE THREE VIEWS BILATERAL INDICATION: Bilateral knee pain COMPARISON: None FINDINGS: AP, oblique and lateral images of both knees were obtained. No acute fracture or dislocation or substantial degenerative change of either knee. The soft tissues appear unremarkable. Lateral right proximal tibia osteochondroma. IMPRESSION: No acute osseous injury of either knee. Lateral right proximal tibia osteochondroma. Signed by: Nevaeh Enamorado MD on 07/08/2020 4:09 PM
--- NOTE | 2020-07-08 16:15 | Diagnostic Imaging Report ---
EXAMINATION: HAND THREE VIEWS BILATERAL INDICATION: Bilateral hand pain COMPARISON: None FINDINGS: 3 views of both hands were obtained. Left hand: No acute fracture or dislocation. Mild medial subluxation of the thumb at the first MCP joint with mild associated degenerative changes. Soft tissues appear unremarkable. Right hand: No acute fracture or dislocation. Mild medial subluxation of the thumb at the first MCP joint with mild associated degenerative changes. Soft tissues appear unremarkable. IMPRESSION: No acute osseous injury. Mild medial subluxation at both thumb MCP joints with mild associated degenerative changes. Signed by: Nevaeh Enamorado MD on 07/08/2020 4:12 PM
== END ==
LOC: RAD 15:14
PROVIDERS: ATTEND Family Medicine
DX: M25.511 Pain in right shoulder (principal); M79.642 Pain in left hand; M79.641 Pain in right hand; M25.562 Pain in left knee; M25.561 Pain in right knee; M79.672 Pain in left foot; M79.671 Pain in right foot

== ENCOUNTER → 2021-03-10 | Day surgery (SDC) | payer BC, OTHER ==
[~2021-03-10] MED LIST: AMLODIPINE BESYL5 MG PO; BUPIVACAINE HCL 0.5% INJ 30 ML VIAL INJ ONE; CEFAZOLIN SOD 1 GM/NS 50ML 100 ML IV ONE; CETIRIZINE HCL10 MG PO; DEXAMETHASONE SOD PHOS INJ 4 MG/ML VIAL ONE; HYDROXYUREA500 MG PO; KETOROLAC TROMETHAMINE 30 MG/ML VIAL ONE; LIDOCAINE HCL 2% LOCAL INJ 5 ML SDV VIAL INJ ONE; ONDANSETRON HCL INJ 2MG/ML 2ML 2 MG/ML VIAL ONE; POVIDONE IODINE 0.05% 0.05 % ML PO ONE; PROPOFOL IV EMULSION 10 MG/ML 20 ML VIAL ONE; SEVOFLURANE INHAL SOLN 250 ML PEN BTL ONE; TRELEGY ELLIPT1 EACH INH; ZITHROMAX500 MG PO
[2021-03-10 12:00] VITALS: BP 145/80
== END | disposition home or self-care (01) ==
LOC: OR 06:55 → EDSTATUS 09:00
PROVIDERS: ATTEND Specialist
DX: G56.01 Carpal tunnel syndrome, right upper limb (principal); M65.311 Trigger thumb, right thumb; M65.331 Trigger finger, right middle finger; J45.909 Unspecified asthma, uncomplicated; D69.6 Thrombocytopenia, unspecified; I10 Essential (primary) hypertension; Z01.812 Encounter for preprocedural laboratory examination; Z20.822 Contact with and (suspected) exposure to COVID-19
CPT/HCPCS: J0690; J1100; J1885; J2001; J2405; U0002